=== PATIENT | male | born 1975 | race Caucasian/White ===

== ENCOUNTER 2023-02-01 08:23 | Outpatient (CLI) | payer MEDICARE, MEDICAID, SELFPAY | END 2023-02-01 08:24 | disposition home or self-care (01) | LOC: NFLDREF 02-04 11:02 | PROVIDERS: PCP Family Medicine; Referring Provider Family Medicine; Visit Provider Family Medicine | DX: Z00.00 Encounter for general adult medical examination without abnormal findings (principal); E78.1 Pure hyperglyceridemia; E78.5 Hyperlipidemia, unspecified | CPT/HCPCS: 80053; 80061 ==

== ENCOUNTER 2023-02-07 10:53 | Outpatient (CLI) | payer MEDICARE, MEDICAID, SELFPAY ==
--- NOTE | 2023-02-07 11:00 | CRLHL7_ITS ---
For Patients: As a result of the Century Cures Act, medical imaging exams and procedure reports are released immediately into your electronic medical record. You may view this report before your referring provider. If you have questions, please contact your health care provider. INDICATION: Right-sided nodule COMPARISON: none TECHNIQUE: Hernandez scale imaging was performed of the scrotum. In addition color Doppler and spectral Doppler analysis was performed of the testes. FINDINGS: The testes demonstrate normal arterial and venous blood flow on color Doppler and spectral Doppler analysis. The testes have uniform echogenicity with no evidence of a suspicious mass or area of inflammation. The right testis measures 4.7 x 2.7 x 3.9 cm in size and the left testis measures 5.1 x 2.8 x 3.5 cm. Incidental epididymal/testicular appendage on the right measuring 2 x 5 x 4 millimeters. Small right hydrocele. IMPRESSION: Incidental epididymal/testicular appendage measuring 5 millimeters accounting for the palpable nodule. No testicular mass. Small right hydrocele. Dictated by Dalton Molina MD @ 02/07/2023 11:53:40 AM (Electronically Signed)
== END 2023-02-07 10:54 | disposition home or self-care (01) ==
LOC: US 10:54
PROVIDERS: PCP Family Medicine; Visit Provider Family Medicine
DX: N50.89 Other specified disorders of the male genital organs (principal); N43.3 Hydrocele, unspecified
CPT/HCPCS: 76870; 93976